=== PATIENT | female | born 1965 | race Caucasian/White ===

== ENCOUNTER 2024-10-03 11:14 | Emergency (ER) | payer SELFPAY ==
[~2024-10-03] VITALS: Ht 170.2 cm; Wt 87.5 kg
[2024-10-03] MEDS ORDERED: SODIUM CHLORIDE 0.9% 1000ML 1,000 ML IV STA (11:34)
[2024-10-03] MEDS: LACTATED RINGER'S 1,000 ML INJ ONE ×3 (12:03→14:24)
[2024-10-03 12:20] LABS: BASOPHILS # (AUTO) 0.1 (0.0-0.1); BASOPHILS % 0.2 % (0.0-1.0); HEMATOCRIT 30.3 % (34.2-44.1); HEMOGLOBIN 10.3 g/dL (12.0-16.0); LYMPHOCYTES # (AUTO) 1.3 (1.0-3.2); LYMPHOCYTES % 4.6 % (18.0-39.1); MEAN CORPUSCULAR HEMOGLOBIN 36.8 pg (28-32); MEAN CORPUSCULAR VOLUME 108.2 fL (81-99); MONOCYTES # (AUTO) 1.1 (0.2-0.8); NEUTROPHILS # (AUTO) 23.2 (2.1-6.9); NEUTROPHILS % 83.3 % (38.7-80.0); PLATELET COUNT 157 x10e3/uL (140-360); RED CELL DISTRIBUTION WIDTH 15.3 % (11.7-14.4); WHITE BLOOD COUNT 27.84 x10e3/uL (4.8-10.8)
[2024-10-03 12:34] LABS: INR 1.14; PROTHROMBIN TIME 15.3 seconds (11.9-14.5)
[2024-10-03 12:35] LABS: PARTIAL THROMBOPLASTIN TIME 33.4 seconds (23.8-35.5)
[2024-10-03 12:43] LABS: ALBUMIN 2.4 g/dL (3.5-5.0); ALBUMIN/GLOBULIN RATIO 0.7 (0.8-2.0); ANION GAP 16.5 mmol/L (8-16); BILIRUBIN,TOTAL 2.4 mg/dL (0.2-1.2); CREATININE, SERUM 1.81 mg/dL (0.57-1.11); MAGNESIUM 1.2 MG/DL (1.3-2.1); POTASSIUM 3.5 mmol/L (3.5-5.1)
[2024-10-03 12:52] LABS: TROPONIN I 0.023 ng/mL (0-0.300)
[2024-10-03] MEDS: CLINDAMYCIN PHOS 900MG/ 50ML 50 ML IV ONE (14:24)
[2024-10-03] MEDS ORDERED: IOPAMIDOL 370 MG/ML 100 ML INFUS..BTL INJ ONE (14:37)
[2024-10-03] MEDS: NOREPINEPHRINE 8 MG/D5W 250 ML 250 ML IV PRN (16:36)
[2024-10-03] MEDS: SODIUM CHLORIDE 0.9% 1000ML 1,000 ML IV SCH (16:37)
[2024-10-03] MEDS: MAGNESIUM SULF 1GRAM/DEXTROSE 100 ML IV ONE (17:08)
[2024-10-03 18:00] VITALS: BP 84/46
[2024-10-03 19:00] VITALS: PULSE 116; RESP 17; TEMP 98.4; O2SAT 99
== END 2024-10-03 19:31 | disposition other institution (70) ==
LOC: ER 11:20
DX: A41.9 Sepsis, unspecified organism (principal); K04.7 Periapical abscess without sinus; K12.2 Cellulitis and abscess of mouth; I10 Essential (primary) hypertension; Z96.642 Presence of left artificial hip joint
CPT/HCPCS: 36415; 36556; 70487; 70491; 71045; 80053; 82550; 83605; 83735; 84484; 85025; 85610; 85730; 87040; 99285; J2543; J3475; J7030; J7121; Q9967